=== PATIENT | female | born 2000 | race African-American/Black ===

== ENCOUNTER 2021-09-09 12:06 | Inpatient (IN) | payer OTHER ==
[~2021-09-09] VITALS: Ht 157.5 cm; Wt 79.7 kg
[2021-09-09 12:41] LABS: BASO % 0.6 % (0.0-1.0); EOS % 0.2 % (0.0-3.0); HEMATOCRIT 39.4 % (36.0-47.0); HEMOGLOBIN 12.9 g/dl (12.0-15.5); LYMPH # 1.9 10^3/uL (1.5-5.0); LYMPH % 37.6 % (24.0-44.0); MEAN CORPUSCULAR HEMOGLOBIN 28.5 pg (27.0-33.0); MEAN CORPUSCULAR HGB CONC 32.7 g/dl (32.0-36.5); MEAN CORPUSCULAR VOLUME 87.2 fl (80.0-96.0); MONO # 0.3 10^3/uL (0.0-0.8); MONO % 6.6 % (2.0-8.0); NEUTROPHILS # 2.8 10^3/uL (1.5-8.5); NEUTROPHILS % 54.8 % (36.0-66.0); PLATELET COUNT, AUTOMATED 376 10^3/uL (150-450); RED BLOOD COUNT 4.52 10^6/uL (4.00-5.40)
[2021-09-09 13:26] LABS: HCG, SERUM QUALITATIVE NEGATIVE (NEGATIVE)
[2021-09-09 13:28] LABS: AMPHETAMINES LEVEL URINE NEGATIVE (NEGATIVE); BARBITURATES URINE NEGATIVE (NEGATIVE); BENZODIAZEPINES URINE NEGATIVE (NEGATIVE); CANNABINOIDS URINE NEGATIVE (NEGATIVE); COCAINE METABOLITE URINE NEGATIVE (NEGATIVE); METHADONE URINE NEGATIVE (NEGATIVE); OPIATES URINE NEGATIVE (NEGATIVE); PHENCYCLIDINE URINE NEGATIVE (NEGATIVE)
[2021-09-09 13:32] LABS: ACETAMINOPHEN LEVEL < 2.0 UG/ML (10.0-30.0); ALBUMIN 4.1 GM/DL (3.2-5.2); ALT/SGPT 34 U/L (12-78); BILIRUBIN,DIRECT 0.1 MG/DL (0.0-0.2); BILIRUBIN,TOTAL 0.5 MG/DL (0.2-1.0); BLOOD UREA NITROGEN 8 MG/DL (7-18); CALCIUM LEVEL 9.4 MG/DL (8.5-10.1); CARBON DIOXIDE LEVEL 24 MEQ/L (21-32); CHLORIDE LEVEL 107 MEQ/L (98-107); CREATININE FOR GFR 0.83 MG/DL (0.55-1.30); ETHYL ALCOHOL (ETHANOL) < 0.003 % (0.000-0.010); GLOMERULAR FILTRATION RATE > 60.0 (>60); GLUCOSE, FASTING 80 MG/DL (70-100); SALICYLATE LEVEL < 1.7 MG/DL (5.0-30.0); SODIUM LEVEL 138 MEQ/L (136-145); TOTAL PROTEIN 7.5 GM/DL (6.4-8.2)
[2021-09-09 17:48] LABS: ACETAMINOPHEN LEVEL < 2.0 UG/ML (10.0-30.0); BLOOD UREA NITROGEN 7 MG/DL (7-18); CALCIUM LEVEL 9.3 MG/DL (8.5-10.1); CARBON DIOXIDE LEVEL 25 MEQ/L (21-32); CHLORIDE LEVEL 111 MEQ/L (98-107); GLOMERULAR FILTRATION RATE > 60.0 (>60); GLUCOSE, FASTING 71 MG/DL (70-100); POTASSIUM SERUM 3.6 MEQ/L (3.5-5.1); SALICYLATE LEVEL < 1.7 MG/DL (5.0-30.0); SODIUM LEVEL 142 MEQ/L (136-145)
[2021-09-09] MEDS ORDERED: HOME MED LIST COMPLETE! XX SCH (20:45)
[2021-09-09 22:40] LABS: RSV AMPLIFICATION NEGATIVE (NEGATIVE)
[2021-09-10] MEDS: NICOTINE 21MG/24HR 1 EA TRANSDERMAL TD SCH (09:00)
[2021-09-10] MEDS ORDERED: ACETAMINOPHEN TAB 650MG DOSE (2X325MG) PO PRN (11:30)
[2021-09-10] MEDS ORDERED: MOM 30ML SUSPENSION UDC PO PRN (11:30)
[2021-09-10] MEDS ORDERED: MAALOX 30 ML SUSP *UDC PO PRN (11:30)
[2021-09-10] MEDS ORDERED: traZODone 50 MG TAB PO PRN (11:30)
[2021-09-10 13:45] VITALS: BP 132/87
[2021-09-11 06:23] VITALS: BP_SYST 110; BP_SYST 158; BP_DIAS 56; BP_DIAS 82
[2021-09-11] MEDS: NICOTINE 21MG/24HR 1 EA TRANSDERMAL TD SCH (09:00)
[2021-09-11] MEDS: SERTRALINE HCL 25 MG TABLET PO SCH (11:17)
[2021-09-11 16:44] VITALS: BP 121/78
[2021-09-12 06:33] VITALS: BP 114/70
[2021-09-12] MEDS: SERTRALINE HCL 25 MG TABLET PO SCH (08:32)
[2021-09-12 18:48] VITALS: BP 121/71
[2021-09-13 06:43] VITALS: BP 110/56
[2021-09-13] MEDS: SERTRALINE HCL 25 MG TABLET PO SCH (09:10)
[2021-09-14 06:57] VITALS: BP 145/62
[2021-09-14] MEDS: SERTRALINE HCL 25 MG TABLET PO SCH (09:23)
[2021-09-14] MEDS ORDERED: SERT25TA21 PO (11:12)
== END 2021-09-14 13:16 | disposition home or self-care (01) | DRG 885 ==
LOC: M ED 12:06 → M ED INP 09-10 11:26 → M PSY 09-10 13:16
PROVIDERS: ADMIT Student in an Organized Health Care Education/Training Program; ATTEND Student in an Organized Health Care Education/Training Program
DX: F32.89 Other specified depressive episodes (principal); U07.1 COVID-19; F43.9 Reaction to severe stress, unspecified; Z62.810 Personal history of physical and sexual abuse in childhood; Z91.410 Personal history of adult physical and sexual abuse; T39.312A Poisoning by propionic acid derivatives, intentional self-harm, initial encounter; Z91.013 Allergy to seafood; Z56.3 Stressful work schedule

== ENCOUNTER → 2022-01-06 | Outpatient (CLI) | payer OTHER ==
[~2022-01-06] MED LIST: SERT25TA21 PO
== END ==
LOC: M PLAIMG 08:33
PROVIDERS: ATTEND Physician Assistant
DX: M25.562 Pain in left knee (principal)

== ENCOUNTER 2022-03-05 09:36 | Emergency (ER) | payer OTHER ==
[~2022-03-05] VITALS: Ht 162.6 cm; Wt 80.0 kg
[2022-03-05] MEDS ORDERED: ACETAMINOPHEN 500 MG TAB PO ONE (09:50)
[2022-03-05 10:54] LABS: RSV AMPLIFICATION NEGATIVE (NEGATIVE)
[2022-03-05 12:21] VITALS: BP 127/72
== END 2022-03-05 12:30 | disposition home or self-care (01) ==
LOC: M ED 09:36
DX: U07.1 COVID-19 (principal); R50.9 Fever, unspecified; R05.9 Cough, unspecified; J02.9 Acute pharyngitis, unspecified; Z91.018 Allergy to other foods; Z79.899 Other long term (current) drug therapy